=== PATIENT | male | born 1995 | race Caucasian/White ===

== ENCOUNTER 2019-12-26 16:56 | Emergency (ER) | payer OTHER, SELFPAY ==
--- NOTE | ~2019-12-26 | XR_ITS ---
EXAMINATION: XR forearm LT 2V DATE: 12/26/2019 17:45 INDICATION: Left forearm injury and swelling. TECHNIQUE: 2 views of left forearm were obtained. COMPARISON: None. FINDINGS: There is a transverse fracture of the junction of radial head and neck. The distal fracture fragment demonstrates impaction, 11 degrees anterior angulation, and 19 degrees radial angulation. J oint spaces are normal. There is a large elbow joint effusion. IMPRESSION: 1. Fracture of the junction of radial head and neck. 2. Large elbow joint effusion. Reviewed, dictated and finalized at location A.
[2019-12-26 17:19] VITALS: BP 149/72; PULSE 106; RESP 16; TEMP 37.3; O2SAT 99
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
--- NOTE | 2019-12-26 18:04 | PC.NURSE ---
[id number] call out to ortho information technology architect. call back from ortho at [phone].
== END 2019-12-26 18:24 | disposition home or self-care (01) ==
PROVIDERS: Emergency Provider Nurse Practitioner Family; PCP Family Medicine Adolescent Medicine
DX: S52.122A Displaced fracture of head of left radius, initial encounter for closed fracture (principal); V18.0XXA Pedal cycle driver injured in noncollision transport accident in nontraffic accident, initial encounter
CPT/HCPCS: 29105; 73090; 99214; A4565; G0463

== ENCOUNTER 2022-11-01 16:14 | Outpatient (CLI) | payer OTHER, SELFPAY ==
[2022-11-12 01:17] LABS: Calprotectin, Stool 5 mcg/g
== END 2022-11-01 16:15 | disposition home or self-care (01) ==
LOC: ANHLAB 16:15
PROVIDERS: PCP Family Medicine Adolescent Medicine; Visit Provider Nurse Practitioner
DX: R19.7 Diarrhea, unspecified (principal); R11.10 Vomiting, unspecified
CPT/HCPCS: 83993; 87045; 87269; 87427

== ENCOUNTER 2022-11-21 00:29 | Day surgery (SDC) | payer OTHER, SELFPAY ==
[2022-11-09 16:03] VITALS: BMI 27.1
--- NOTE | 2022-11-20 18:00 | PM.HPGS ---
History of Present Illness History of Present Illness Consent: Risks, benefits, and alternatives have been discussed and questions answered. Patient agrees to proceed with procedure. Chief complaint: diarrhea, vomiting, GERD Narrative: Thomas Woods is a 27 year old male who was referred to us because of persistent vomiting and also diarrhea. He has vomited daily since 2020. A few years ago he had this problem And it subsided for while. There is no pattern to when he vomits. He does not have abdominal pain. Always begins with gagging in his throat and water brash. Protonix did not help with the symptoms. He began having diarrhea July this past year after having upper respiratory infection. On 1 occasion he had bright red blood in his stools. Testing for celiac disease was negative. Review of Systems Review of Systems: All systems reviewed & are unremarkable except as noted in HPI and below PMFSH Past Medical History Medical History Diarrhea Hematochezia Hx of myelitis Repair Obesity Surgical History Surgical History History of tonsillectomy and adenoidectomy (2002) Hx of myringotomy (1998) Family History Family History Other Asthma Social History Social History Years smoked: 1 Smoking status: Former smoker Tobacco type: e-cigarettes/vaping Second hand tobacco smoke exposure: No Additional smoking assessment comments: CURRENTLY VAPES Alcohol intake: current Substance use: never Substance use type: marijuana Other substance usage details: COUPLE TIMES A WEEK Living arrangements: with family Occupation/Education: occupation Gender identity (if verbalized by the patient): Male Spiritual care concerns: No Agree to blood products: Yes Meds Home Medications and Allergies Home Medications Medication Instructions Recorded Confirmed Type ezloqgy-lucqizerlzeco-zxvudoht 250 1 tablet PO Q4-6H PRN Headache 04/25/22 11/09/22 History mg-250 mg-65 mg tablet (Excedrin Migraine) bupropion HCl 150 mg 24 hr tablet, 150 mg PO QAM 04/25/22 11/09/22 History extended release paliperidone palm (6-month) 1,092 1,092 mg IM .qmonth 10/11/22 11/09/22 History mg/3.5 mL intramuscular syringe (Arelis Rabago) quetiapine 50 mg tablet 50 mg PO DAILY 10/11/22 11/09/22 History sertraline 50 mg tablet 50 mg PO DAILY 10/11/22 11/09/22 History omeprazole 40 mg capsule,delayed 40 mg PO DAILY #30 caps 10/31/22 11/09/22 Rx release clonazepam 0.5 mg tablet 0.5 mg PO DAILY PRN Anxiety 11/09/22 11/09/22 History magnesium oxide 400 mg (241.3 mg 200 - 400 mg PO HS PRN Restless 11/09/22 11/09/22 History magnesium) tablet Leg(S) Allergies Allergy/AdvReac Type Severity Reaction Status Date / Time No Known Allergies Allergy Verified 11/21/22 10:30 Exam Const: General: alert Orientation/consciousness: patient oriented x3 Resp: Auscultation: clear to auscultation bilaterally Cardio: Rhythm: regular rhythm GI: GI Palp: Yes Soft to palpation and No Tenderness to palpation present (GI) Neuro: General: patient oriented x3 Assessment and Plan Assessment and plan (1) Vomiting: Code(s): R11.10 - Vomiting, unspecified Status: Acute Assessment and Plan: EGD with possible biopsy or dilatation or cautery. (2) Diarrhea: Code(s): R19.7 - Diarrhea, unspecified Status: Acute Assessment and Plan: Colonoscopy with possible biopsy or polypectomy or cautery or injection of substances.
[2022-11-21 10:31] VITALS: BP 103/74; PULSE 74; RESP 18; TEMP 36.3; O2SAT 100; BMI 27.7
[2022-11-21] MEDS: LACTATED RINGERS 1,000 ML 150 ML IV CONT (10:41)
--- NOTE | 2022-11-21 10:49 | WPDANESEPPF ---
Anes - Initial Pre Proc Eval Procedure: Operation Date: 11/21/22 11:30 Proposed Procedures p Esophagogastroduodenoscopy & Colonoscopy - Minesh Wall MD Date/Time: 11/21/22 10:49 Surgeon: Minesh Wall MD Pre Op Diagnosis: diarrhea, vomiting, GERD Patient Data Age: 27 Gender: M Height: 1.83 m Weight: 92.8 kg Last Vital Signs Temp 97.4 F L 11/21/22 10:31 Pulse 74 11/21/22 10:31 Resp 18 11/21/22 10:31 BP 103/74 11/21/22 10:31 Pulse Ox 100 11/21/22 10:31 O2 Del Method Room Air 11/21/22 10:31 Allergies Allergy/AdvReac Type Severity Reaction Status Date / Time No Known Allergies Allergy Verified 11/21/22 10:30 Home Medications Medication Instructions Recorded Confirmed Type farteyp-kaelwoptsexkb-rseuouwv 250 1 tablet PO Q4-6H PRN Headache 04/25/22 11/21/22 History mg-250 mg-65 mg tablet (Excedrin Migraine) bupropion HCl 150 mg 24 hr tablet, 150 mg PO QAM 04/25/22 11/21/22 History extended release paliperidone palm (6-month) 1,092 1,092 mg IM .qmonth 10/11/22 11/21/22 History mg/3.5 mL intramuscular syringe (Invega Nemoa) quetiapine 50 mg tablet 50 mg PO DAILY 10/11/22 11/21/22 History sertraline 50 mg tablet 50 mg PO DAILY 10/11/22 11/21/22 History omeprazole 40 mg capsule,delayed 40 mg PO DAILY #30 caps 10/31/22 11/21/22 Rx release clonazepam 0.5 mg tablet 0.5 mg PO DAILY PRN Anxiety 11/09/22 11/21/22 History magnesium oxide 400 mg (241.3 mg 200 - 400 mg PO HS PRN Restless 11/09/22 11/21/22 History magnesium) tablet Leg(S) Patient hx anesthesia problems: none Family hx anesthesia problems: none Results Review: All pre-operative results and documents have been reviewed as part of the pre-operative evaluation. [facility] Past Medical History Medical History Diarrhea Hematochezia Hx of myelitis Repair Obesity Surgical History Surgical History History of tonsillectomy and adenoidectomy (2002) Hx of myringotomy (1998) Family History Family History Other Asthma Social History Social History Years smoked: 1 Smoking status: Former smoker Tobacco type: e-cigarettes/vaping Second hand tobacco smoke exposure: No Additional smoking assessment comments: CURRENTLY VAPES Alcohol intake: current Substance use: never Substance use type: marijuana Other substance usage details: COUPLE TIMES A WEEK Living arrangements: with family Occupation/Education: occupation Gender identity (if verbalized by the patient): Male Spiritual care concerns: No Agree to blood products: Yes Anes - Eval Final PreProcedure Day of Procedure 11/21/22 10:49 Patient weight: normal Heart: regular rate and rhythm Lungs: clear to auscultation Airway: Mallampati scale class II Neurological: alert and oriented Last oral intake: >/= 8 hours ASA classification: II Emergent: no Anesthetic plan: proceed Anesthesia type and monitoring: general GIVS and standard monitoring Results Review: All pre-operative results and documents have been reviewed as part of the pre-operative evaluation. Informed Consent: The patient's anesthetic plan and its attendant risks and benefits were discussed with the patient/family/POA. Questions were solicited and answers provided to the satisfaction of the patient/family/POA.
--- NOTE | 2022-11-21 11:10 | SUR.OPER ---
EGD: Start 10:56, End 11:01, Colon: Start 11:07, End 11:20
[2022-11-21] MEDS: SIMETHICONE ORAL SUSPENSION 20 MG/0.3 ML 30 ML BOTTLE 0.6 ML IRRIGATION (11:11)
[2022-11-21 11:24] VITALS: BP 95/59; PULSE 69; RESP 15; O2SAT 98
[2022-11-21 11:34] VITALS: BP 120/75; PULSE 61; RESP 15; O2SAT 100
[2022-11-21 11:44] VITALS: BP 115/80; PULSE 55; RESP 14; O2SAT 100
== END 2022-11-21 11:57 | disposition home or self-care (01) ==
PROVIDERS: PCP Family Medicine Adolescent Medicine; Visit Provider Internal Medicine Gastroenterology
PROC: 0DJ08ZZ Inspection of Upper Intestinal Tract, Via Natural or Artificial Opening Endoscopic (ICD-10-PCS; CPT 43235; principal; 2022-11-21 11:30)
DX: R19.7 Diarrhea, unspecified (principal); K20.0 Eosinophilic esophagitis; F17.290 Nicotine dependence, other tobacco product, uncomplicated; F12.90 Cannabis use, unspecified, uncomplicated
CPT/HCPCS: 45380; 43239; 87081; 88305; J2704; J7120

== ENCOUNTER 2024-04-20 13:45 | Outpatient (CLI) | payer OTHER, SELFPAY ==
--- NOTE | 2024-05-04 11:29 | WPDHOLTEREM ---
Holter/Event Monitor Holter/Event Monitor Date of procedure: 04/20/24 Holter/Event Procedure: 48 Hr Holter Monitor Indications: Tachycardia Conclusion: 1. 48 hour on 04/20/24. 2. Underlying rhythm is sinus rhythm. HR range 39-160 bpm; average HR 86 bpm. HR at 39 bpm was at 03:33. HR at 160 bpm was at 14:57. 3. There are 178 premature supraventricular complexes and 1 supraventricular couplet. No supraventricular tachycardia. 4. There are 5 premature ventricular complexes, 1 ventricular couplet. No ventricular tachycardia. 5. No sinoatrial or atrioventricular blocks. No significant pauses greater than 2 seconds. 6. No symptoms available for correlation.
== END 2024-04-20 13:46 | disposition home or self-care (01) ==
PROVIDERS: PCP Family Medicine Adolescent Medicine; Visit Provider Nurse Practitioner Family
DX: R00.0 Tachycardia, unspecified (principal); R42 Dizziness and giddiness
CPT/HCPCS: 93225; 93226

== ENCOUNTER 2025-05-21 12:47 | Emergency (ER) | payer OTHER, SELFPAY ==
[2025-05-21 12:56] VITALS: BP 120/71; PULSE 101; RESP 18; TEMP 36.6; O2SAT 97
--- NOTE | 2025-05-21 13:36 | ED.URI ---
HPI - URI/Sore Throat General Chief Complaint: Upper Respiratory Infection Stated Complaint: Sinus Time Seen by Provider: 05/21/25 13:36 Source: patient Mode of arrival: ambulatory Limitations: no limitations History of Present Illness HPI Narrative: 29-year-old male presents with complaint of sore throat, fatigue, nasal congestion for 2 days. Patient reports cough, shortness of breath with exertion for 2 weeks. patient current everyday smoker. Afebrile. All systems reviewed and negative except as noted above. Related Data Home Medications ?Medication ?Instructions ?Recorded ?Confirmed ?Last Taken ?Type clozapine 100 mg tablet mg 05/21/25 Unknown History hydroxyzine HCl 25 mg tablet mg 05/21/25 Unknown History paliperidone palmitate 234 mg/1.5 mg IM 05/21/25 Unknown History mL intramuscular syringe (Invega Sustenna) trazodone 100 mg tablet mg 05/21/25 Unknown History Allergies Allergy/AdvReac Type Severity Reaction Status Date / Time No Known Allergies Allergy Verified 05/21/25 13:28 [facility] Past Medical History Medical History Diarrhea Hematochezia Hx of myelitis Repair Obesity Surgical History Surgical History History of tonsillectomy and adenoidectomy (2002) Hx of myringotomy (1998) Family History Family History Other Asthma Social History Social History Years smoked: 1 Smoking status: Former smoker Tobacco type: e-cigarettes/vaping Second hand tobacco smoke exposure: No Additional smoking assessment comments: CURRENTLY VAPES Alcohol intake: current Substance use: never Substance use type: marijuana Other substance usage details: COUPLE TIMES A WEEK Living arrangements: with family Occupation/Education: occupation Gender identity (if verbalized by the patient): Male Spiritual care concerns: No Agree to blood products: Yes Comments At time of signature, agree with nursing past medical, surgical, social and family history. There is no relevant family history pertinent to the presenting complaint. Exam Narrative: GENERAL: This is a well-nourished, well-developed patient, ill-appearing but no acute distress HEAD: normocephalic, atraumatic. EYES: PERRL. Sclera clear/white. Vision is grossly intact. EARS: External ears normal, auditory canals clear and without drainage, TMs normal without perforation. Hearing grossly intact. NOSE: External nose normal with no obvious nasal discharge, nares without redness, no rhinorrhea. THROAT: Mucous membranes moist, Erythematous with swelling. No exudates. NECK: Neck supple, non-tender without lymphadenopathy, masses or thyromegaly. CARDIOVASCULAR: Regular rate and rhythm without murmurs, gallops, or rubs. RESPIRATORY: Mildly coarse throughout all lung sounds on expiration. Breath sounds equal bilaterally. No wheezes, rales, or rhonchi. SKIN: warm, Dry, intact with no suspicious lesions or rash, good texture and turgor. NEURO: awake, alert, and oriented to person, place and time. There were no obvious focal neurologic abnormalities. EXTREMITIES: No joint tenderness, effusion, or edema noted. Course Course Level of Care: Express Care Visit Vital Signs Vital signs: Vital Signs Temperature 36.6 C 05/21/25 12:56 Pulse Rate 101 H 05/21/25 12:56 Respiratory Rate 18 05/21/25 12:56 Blood Pressure 120/71 05/21/25 12:56 Pulse Oximetry 97 05/21/25 12:56 Oxygen Delivery Room Air 05/21/25 12:56 Temperature 36.6 C 05/21/25 12:56 Pulse Rate 101 H 05/21/25 12:56 Respiratory Rate 18 05/21/25 12:56 Blood Pressure 120/71 05/21/25 12:56 Pulse Oximetry 97 05/21/25 12:56 Oxygen Delivery Room Air 05/21/25 12:56 reviewed MDM - URI/Sore Throat MDM Narrative Medical decision making narrative: will treat positive rapid strep with amoxicillin. Will treat bronchitis with prednisone and albuterol inhaler. Recommend follow-up with primary care physician at next available appointment. Differential Diagnosis Differential diagnosis: Likely upper respiratory infection, sinusitis, viral infection, bronchitis and pharyngitis Lab Data Labs: Lab Results 05/21/25 Range/Units 13:37 POC Grp A Strep Screen Positive (Negative) Discharge Plan Discharge Clinical Impression: Strep throat, Acute bronchitis Patient Disposition: Home Condition: Stable Instructions: Antibiotic Form, Strep Throat (ED) Additional Instructions: your strep test was positive today. Take antibiotic as prescribed. Change toothbrush after taking antibiotic for 24 hours. Purchase [id number] Mucinex DM and take as directed on packaging. Take Tylenol or ibuprofen every 6-8 hours as needed for pain and fever. Drink at least 64 oz of water a day. See your primary care physician if symptoms are not improving. Patient Language: [place] Prescriptions: New prednisone 20 mg tablet 40 mg PO DAILY 5 Days Qty: 10 0RF amoxicillin 875 mg tablet 875 mg PO Q12H 10 Days Qty: 20 0RF albuterol sulfate 90 mcg/actuation HFA aerosol inhaler 2 puff inhalation Q4-6H PRN (Reason: shortness of breath or wheezing) Qty: 8.5 0RF (DME) Aerochamber Plus Z Stat Spacer See Rx Instructions .Route Qty: 1 0RF Rx Instructions: As directed No Action clozapine 100 mg tablet trazodone 100 mg tablet hydroxyzine HCl 25 mg tablet Invega Sustenna 234 mg/1.5 mL syringe IM Follow-up/Referrals: Alverto Justice MD [Primary Care Provider, Family Practice] Time of Disposition: 13:41
[2025-05-21 13:39] LABS: EDSTREPNEGPOS1 Positive (Negative)
== END 2025-05-21 13:53 | disposition home or self-care (01) ==
PROVIDERS: Emergency Provider Nurse Practitioner Family; PCP Family Medicine Adolescent Medicine
DX: J02.0 Streptococcal pharyngitis (principal); J20.9 Acute bronchitis, unspecified; F17.210 Nicotine dependence, cigarettes, uncomplicated; Z79.899 Other long term (current) drug therapy
CPT/HCPCS: 87880; 99213; G0463